=== PATIENT | female | born 1930 | race Caucasian/White ===

== ENCOUNTER → 2016-09-06 | Outpatient (CLI) | payer BC, OTHER ==
[~2016-09-06] MED LIST: ACET-1138 PO; ACET325T96 PO; ALUMSUS PO; ASPCH81X PO; CPR500 PO; CYAN3INJ SC; DOCU-94 PO; FRS/40 PO; IPRASOL4 INH; LDDP5 TD; LEVO125T5 PO; LOSA25TA18 PO; MCRK20 PO; METO25TA3 PO; RXC5 PO; SIMV20TA2 PO
[2016-09-06 12:08] LABS: HEMATOCRIT 38.8 % (37-47); MEAN CELL VOLUME 92.8 fL (80-100); MEAN CORPUSCULAR HEMOGLOBIN 29.2 pg (25-34); MEAN CORPUSCULAR HGB CONC 31.4 g/dl (32-36); MEAN PLATELET VOLUME 11.6 fL (7.4-10.4); PLATELET COUNT 251 K/uL (130-400); RED BLOOD COUNT 4.18 M/uL (4.2-5.4); WHITE BLOOD COUNT 8.46 K/uL (4.8-10.8)
== END | disposition home or self-care (01) ==
LOC: C.LABCC 11:42
PROVIDERS: ATTEND Internal Medicine
DX: T14.8 Other injury of unspecified body region (principal); X58.XXXA Exposure to other specified factors, initial encounter

== ENCOUNTER → 2016-10-20 | Outpatient (CLI) | payer BC, OTHER ==
[~2016-10-20] MED LIST changes: +LEVO125T4 PO; -LEVO125T5 PO
[2016-10-20 09:40] LABS: ESTIMATED AVERAGE GLUCOSE 131 mg/dl; HA1C FLAG Normal (Normal)
== END ==
LOC: C.LABCC 08:25
PROVIDERS: ATTEND Internal Medicine
DX: R73.01 Impaired fasting glucose (principal)

== ENCOUNTER → 2016-11-28 | Outpatient (CLI) | payer BC, OTHER | LOC: C.LABCC 08:21 | PROVIDERS: ATTEND Internal Medicine | DX: E03.9 Hypothyroidism, unspecified (principal) ==

== ENCOUNTER → 2017-02-01 | Outpatient (CLI) | payer BC, OTHER ==
[~2017-02-01] MED LIST changes: -LEVO125T4 PO; +LEVO125T5 PO
[2017-02-01 10:37] LABS: CALCIUM 8.8 mg/dl (8.5-10.1)
[2017-02-01 10:40] LABS: ALT/SGPT 17 U/L (12-78); BLOOD UREA NITROGEN 23 mg/dl (7-18); BUN/CREATININE RATIO 20.8 (10-20); CARBON DIOXIDE 32 mmol/L (21-32); CHLORIDE 104 mmol/L (98-107); CHOLESTEROL 151 mg/dl (0-200); GLUCOSE 108 mg/dl (70-99); POTASSIUM 3.9 mmol/L (3.5-5.1); SODIUM 144 mmol/L (136-145); TRIGLYCERIDES 143 mg/dl (0-150); VERY LOW DENSITY LIPOPROT CALC 29 mg/dl
[2017-02-01 10:43] LABS: ALB/GLOB RATIO 0.7 (0.9-2); ALKALINE PHOSPHATASE 63 U/L (45-117); AST/SGOT 12 U/L (15-37); CHOLESTEROL/HDL RATIO 3.8; HDL CHOLESTEROL 40 mg/dl; LDL CHOLESTEROL CALCULATED 82 mg/dl
== END | disposition home or self-care (01) ==
LOC: C.LABCC 08:47
PROVIDERS: ATTEND Internal Medicine
DX: E78.5 Hyperlipidemia, unspecified (principal)

== ENCOUNTER → 2017-02-19 | Outpatient (CLI) | payer BC, OTHER ==
[2017-02-19 13:35] LABS: ESTIMATED AVERAGE GLUCOSE 140 mg/dl; HA1C FLAG Normal (Normal)
== END ==
LOC: C.LABCC 12:22
PROVIDERS: ATTEND Internal Medicine
DX: E11.9 Type 2 diabetes mellitus without complications (principal)

== ENCOUNTER → 2017-05-09 | Outpatient (CLI) | payer BC, OTHER ==
[~2017-05-09] MED LIST changes: +LEVO125T4 PO; -LEVO125T5 PO
[2017-05-09 09:07] LABS: URINE APPEARANCE CLOUDY (CLEAR); URINE BILIRUBIN NEG (NEG); URINE COLOR YELLOW; URINE NITRITE POS (NEG); URINE SPECIFIC GRAVITY 1.024 (1.000-1.030); UROBILINOGEN NEG (NEG)
[2017-05-09 09:20] LABS: MANUAL MICROSCOPIC REQUIRED? NO; REVIEW REQ? YES
== END ==
LOC: C.LABCC 08:09
PROVIDERS: ATTEND Internal Medicine
DX: R41.82 Altered mental status, unspecified (principal); R29.6 Repeated falls

== ENCOUNTER → 2017-06-04 | Outpatient (CLI) | payer BC, OTHER ==
[2017-06-04 08:26] LABS: BASO % 0.2 %; BASO ABS # 0.02 K/uL (0-0.2); COMPLETE YES; EOS % 7.8 %; HEMATOCRIT 41.7 % (37-47); IG% 0.6 %; LYMPH % 30.2 %; LYMPH ABS # 2.45 K/uL (1.2-3.4); MEAN CELL VOLUME 94.6 fL (80-100); MEAN CORPUSCULAR HEMOGLOBIN 29.7 pg (25-34); MEAN CORPUSCULAR HGB CONC 31.4 g/dl (32-36); MEAN PLATELET VOLUME 11.1 fL (7.4-10.4); MONO % 9.6 %; NEUT % 51.6 %; PLATELET COUNT 226 K/uL (130-400); RED BLOOD COUNT 4.41 M/uL (4.2-5.4); WHITE BLOOD COUNT 8.12 K/uL (4.8-10.8)
== END ==
LOC: C.LABCC 07:48
PROVIDERS: ATTEND Internal Medicine
DX: D64.9 Anemia, unspecified (principal)

== ENCOUNTER → 2017-06-12 | Outpatient (CLI) | payer BC, OTHER ==
[2017-06-13 04:24] LABS: URINE APPEARANCE CLEAR (CLEAR); URINE BILIRUBIN NEG (NEG); URINE COLOR YELLOW; URINE NITRITE POS (NEG); URINE PH 5.5 (4.5-7.5); URINE SPECIFIC GRAVITY 1.019 (1.000-1.030); UROBILINOGEN NEG (NEG)
[2017-06-13 04:26] LABS: MANUAL MICROSCOPIC REQUIRED? NO; REVIEW REQ? NO
== END ==
LOC: C.LABCC 10:47
PROVIDERS: ATTEND Internal Medicine
DX: R30.0 Dysuria (principal); R32 Unspecified urinary incontinence

== ENCOUNTER → 2017-08-03 | Outpatient (CLI) | payer BC, OTHER ==
[~2017-08-03] MED LIST changes: -LEVO125T4 PO; +LEVO125T5 PO
[2017-08-03 09:04] LABS: URINE APPEARANCE CLEAR (CLEAR); URINE BILIRUBIN NEG (NEG); URINE COLOR YELLOW; URINE NITRITE POS (NEG); URINE SPECIFIC GRAVITY 1.029 (1.000-1.030); UROBILINOGEN NEG (NEG)
[2017-08-03 09:09] LABS: MANUAL MICROSCOPIC REQUIRED? NO; REVIEW REQ? NO
== END ==
LOC: C.LABCC 08:35
PROVIDERS: ATTEND Internal Medicine
DX: R32 Unspecified urinary incontinence (principal)

== ENCOUNTER → 2017-08-28 | Outpatient (CLI) | payer BC, OTHER ==
[~2017-08-28] MED LIST changes: +ACET-1693 PO; -ACET325T96 PO; +IPRA-64 INH; -IPRASOL4 INH
== END ==
LOC: C.LABCC 09:46
PROVIDERS: ATTEND Internal Medicine
DX: E03.9 Hypothyroidism, unspecified (principal)

== ENCOUNTER → 2017-10-05 | Outpatient (CLI) | payer BC, OTHER ==
[~2017-10-05] MED LIST changes: -ACET-1693 PO; +ACET325T96 PO; -IPRA-64 INH; +IPRASOL4 INH
[2017-10-05 09:00] LABS: HEMATOCRIT 38.6 % (37-47); HEMOGLOBIN 12.1 g/dL (12.0-16.0); MEAN CELL VOLUME 95.8 fL (80-100); MEAN CORPUSCULAR HGB CONC 31.3 g/dl (32-36); MEAN PLATELET VOLUME 11.2 fL (7.4-10.4); PLATELET COUNT 227 K/uL (130-400); RED CELL DISTRIBUTION WIDTH CV 15.4 % (11.5-14.5); RED CELL DISTRIBUTION WIDTH SD 53.8 fL (36.4-46.3); WHITE BLOOD COUNT 6.99 K/uL (4.8-10.8)
[2017-10-05 09:08] LABS: ALBUMIN 2.7 gm/dl (3.4-5.0); ALT/SGPT 16 U/L (12-78); BLOOD UREA NITROGEN 22 mg/dl (7-18); CALCIUM 8.5 mg/dl (8.5-10.1); CARBON DIOXIDE 32 mmol/L (21-32); CREATININE 1.05 mg/dl (0.60-1.20); GLUCOSE 106 mg/dl (70-99); POTASSIUM 3.8 mmol/L (3.5-5.1); SODIUM 141 mmol/L (136-145)
[2017-10-05 09:11] LABS: ALKALINE PHOSPHATASE 60 U/L (45-117); AST/SGOT 11 U/L (15-37); TOTAL PROTEIN 6.5 gm/dl (6.4-8.2)
[2017-10-05 10:26] LABS: HEMOGLOBIN A1C 6.3 % (4.5-5.6)
== END ==
LOC: C.LABCC 08:31
PROVIDERS: ATTEND Internal Medicine
DX: R41.0 Disorientation, unspecified (principal)

== ENCOUNTER → 2017-11-30 | Outpatient (CLI) | payer BC, OTHER ==
[~2017-11-30] MED LIST changes: +ACET-1693 PO; -ACET325T96 PO
[2017-11-30 17:47] LABS: INFLUENZA B ANTIGEN Neg for Influ B (NEG)
== END ==
LOC: C.LABCC 16:42
PROVIDERS: ATTEND Internal Medicine
DX: R05 Cough (principal); R50.9 Fever, unspecified; R09.81 Nasal congestion

== ENCOUNTER → 2017-12-03 | Outpatient (CLI) | payer BC, OTHER ==
[2017-12-03 08:19] LABS: BASO % 0.1 %; BASO ABS # 0.01 K/uL (0-0.2); EOS % 0.1 %; EOS ABS # 0.01 K/uL (0-0.5); HEMATOCRIT 42.3 % (37-47); HEMOGLOBIN 12.9 g/dL (12.0-16.0); IG# 0.03 K/uL (0.00-0.02); LYMPH % 31.4 %; LYMPH ABS # 2.94 K/uL (1.2-3.4); MEAN CELL VOLUME 94.8 fL (80-100); MEAN CORPUSCULAR HEMOGLOBIN 28.9 pg (25-34); MEAN CORPUSCULAR HGB CONC 30.5 g/dl (32-36); MEAN PLATELET VOLUME 11.1 fL (7.4-10.4); MONO % 4.3 %; NEUT % 63.8 %; NEUT ABS # 5.98 K/uL (1.4-6.5); PLATELET COUNT 199 K/uL (130-400); RED CELL DISTRIBUTION WIDTH CV 15.7 % (11.5-14.5); RED CELL DISTRIBUTION WIDTH SD 54.6 fL (36.4-46.3); WHITE BLOOD COUNT 9.37 K/uL (4.8-10.8)
[2017-12-03 08:35] LABS: BLOOD UREA NITROGEN 32 mg/dl (7-18); CALCIUM 8.7 mg/dl (8.5-10.1); CARBON DIOXIDE 30 mmol/L (21-32); CREATININE 1.09 mg/dl (0.60-1.20); GLUCOSE 112 mg/dl (70-99); POTASSIUM 4.1 mmol/L (3.5-5.1); SODIUM 142 mmol/L (136-145)
== END ==
LOC: C.LABCC 07:53
PROVIDERS: ATTEND Internal Medicine
DX: I50.9 Heart failure, unspecified (principal)

== ENCOUNTER → 2018-01-07 | Outpatient (CLI) | payer BC, OTHER ==
[2018-01-07 13:58] LABS: BLOOD UREA NITROGEN 19 mg/dl (7-18); CALCIUM 8.8 mg/dl (8.5-10.1); CARBON DIOXIDE 30 mmol/L (21-32); GLUCOSE 112 mg/dl (70-99); POTASSIUM 3.7 mmol/L (3.5-5.1); SODIUM 139 mmol/L (136-145)
== END ==
LOC: C.LABCC 12:28
PROVIDERS: ATTEND Internal Medicine
DX: E87.6 Hypokalemia (principal)